=== PATIENT | male | born 1940 | race African-American/Black ===

== ENCOUNTER 2017-03-31 05:42 | Inpatient (IN) | payer OTHER ==
[~2017-03-31] VITALS: Ht 167.6 cm; Wt 79.4 kg
[2017-03-31] VITALS (19 sets, daily range): BP systolic 89–151; BP diastolic 48–86
[2017-03-31] MEDS ORDERED: Vancomycin 1gm/D5W 275ml IVPB ONE ×2 (06:00)
[2017-03-31] MEDS ORDERED: Pantoprazole Inj IVP ONE (06:00)
[2017-03-31] MEDS ORDERED: Thrombin 5000 units TOPIC ONE (07:08)
[2017-03-31] MEDS ORDERED: Vancomycin 1gm inj IVPB ONE (07:09)
[2017-03-31] MEDS ORDERED: Bacitracin Oint 15gm Tube TOPIC ONE (07:09)
[2017-03-31] MEDS ORDERED: Bupivacaine w/Epi 0.5% 30ml Vial INJ ONE (07:10)
[2017-03-31] MEDS ORDERED: Gelfoam Absorbable 1gm powder pkt TOPIC ONE (07:10)
[2017-03-31] MEDS ORDERED: Thrombin 5000 units spray kit TOPIC ONE (07:10)
[2017-03-31] MEDS ORDERED: Bacitracin 50000 Units Vial ONE ×2 (07:10→13:11)
[2017-03-31] MEDS ORDERED: NS Irrig 1000ml ONE (07:30)
[2017-03-31] MEDS ORDERED: Zemuron 50mg/5ml Inj IV ONE (07:30)
[2017-03-31] MEDS ORDERED: Midazolam 2mg/2ml Inj ONE (07:30)
[2017-03-31] MEDS ORDERED: Morphine Sulfate 10mg/ml Inj ONE (07:30)
[2017-03-31] MEDS ORDERED: Meperidine 25mg/0.5ml Inj (FOR RIGORS ONLY) ONE (07:30)
[2017-03-31] MEDS ORDERED: Propofol 200mg/20ml IV ONE (07:30)
[2017-03-31] MEDS ORDERED: Sterile Water Irrig 1000ml IRRIG ONE (07:30)
[2017-03-31] MEDS ORDERED: fentaNYL 100 mcg/2 mL IV ONE (07:30)
[2017-03-31] MEDS ORDERED: Glycopyrrolate 0.2mg/ml 1ml Vial ONE (07:30)
[2017-03-31] MEDS ORDERED: COSOPT1 DRO2 BOTH EYES (07:31)
[2017-03-31] MEDS ORDERED: AMIODARONE HCL200 MG ORAL (07:31)
[2017-03-31] MEDS ORDERED: IBUPROFEN800 M1 PO (07:31)
[2017-03-31] MEDS ORDERED: OMEPRAZOLE MAGN20 MG PO (07:31)
[2017-03-31] MEDS ORDERED: TAMSULOSIN HCL0.4 MG ORAL (07:31)
[2017-03-31] MEDS ORDERED: FINASTERIDE5 MG ORAL (07:31)
[2017-03-31] MEDS ORDERED: PRAVASTATIN SOD40 M1 ORAL (07:31)
[2017-03-31] MEDS ORDERED: METOPROLOL SUCC50 MG ORAL (07:31)
[2017-03-31] MEDS ORDERED: DILTIAZEM ER180 MG PO (07:31)
[2017-03-31] MEDS ORDERED: LATANOPROST2.5 ML BOTH EYES (07:31)
--- NOTE | 2017-03-31 07:52 | Pre-Procedure Note/Attestation ---
Pre-Procedure Note/Attestation Complete Prior to Procedure Planned Procedure: bilateral Procedure Narrative: Posterior lumbar decompressive surgery L3-4 and L4-5 decompression and interspinous fusion with interspinous device at L4-5 and posterolateral arthrodesis, iliac crest bone marrow aspiration, use of allograft, autograft. Attestation I attest that I discussed the nature of the procedure; its benefits; risks and complications; and alternatives (and the risks and benefits of such alternatives ), prior to the procedure, with the patient (or the patient's legal leasing representative). I attest that, if there was a reasonable possibility of needing a blood transfusion, the patient (or the patient's legal leasing representative) was given the [place] [facility] [employer] [facility] standardized written summary, pursuant to the Harpreet Marguerite Blood Safety Act ([place] Health and Safety Code # 1645, as amended). I attest that I re-evaluated the patient just prior to the surgery and that there has been no change in the patient's H&P, except as documented below: PAIGE GARSIA Mar 31, 2017 07:52
[2017-03-31] MEDS ORDERED: LR 1000ml 1,000 ML IVLG SCH (08:43)
[2017-03-31] MEDS ORDERED: Morphine Sulfate 2mg/ml Inj IVP PRN (08:45)
[2017-03-31] MEDS ORDERED: DiphenhydrAMINE 50mg/ml Inj IVP PRN (08:45)
[2017-03-31] MEDS ORDERED: Meperidine 25mg/0.5ml Inj (FOR RIGORS ONLY) SUBQ PRN (08:45)
[2017-03-31] MEDS ORDERED: Ketorolac 30mg Inj IV PRN (08:45)
[2017-03-31] MEDS ORDERED: fentaNYL 100 mcg/2 mL IV PRN (08:45)
--- NOTE | 2017-03-31 08:49 | Anethesia Preoperative Eval ---
Anesthesia Pre-op PMH/ROS General Date of Evaluation: Mar 31, 2017 Time of Evaluation: 07:30 Anesthesiologist: PANFILO ASA Score: ASA 3 Mallampati Score Class I : Soft palate, uvula, fauces, pillars visible Class II: Soft palate, uvula, fauces visible Class III: Soft palate, base of uvula visible Class IV: Only hard plate visible Mallampati Classification: Class II Surgeon: ADY Diagnosis: LUMBAR RADICUOPATHY Surgical Procedure: L4-5 DECOMPRESSION Anesthesia History: none Family History: no anesthesia problems Allergies: Coded Allergies: No Known Allergies (Unverified , 03/31/17) Medications: see eMAR Past Medical History Cardiovascular: Reports: arrhythmia Pulmonary: Reports: GLORIA Gastrointestinal/Genitourinary: Reports: GERD Endocrine: Reports: DM Anesthesia Pre-op Phys. Exam Physician Exam Last Vital Signs Date Time Temp Pulse Resp B/P (MAP) Pulse Ox O2 Delivery O2 Flow Rate FiO2 03/31/17 06:58 97.8 53 18 151/86 97 Room Air Constitutional: NAD Neurologic: CN 2-12 intact Cardiovascular: RRR Respiratory: CTA Airway Exam Mallampati Score: Class II MO: full ROM: full Teeth: intact Anesthesia Pre-op A/P Labs WNL Studies Pre-op Studies: EKG Risk Assessment & Plan Plan: GENERAL ANESTHESIA Status Change Before Surgery: No Pre-Antibiotics Given Within 1 Hr of Incision: Yes Sidney Cruz M.D. Mar 31, 2017 08:49
--- NOTE | 2017-03-31 08:51 | 48 Hour Post Anesthesia Eval ---
Post Anesthesia Evaluation Procedure: LUMBAR DECOMPRESSION Date of Evaluation: Mar 31, 2017 Time of Evaluation: 08:00 Blood Pressure Systolic: 99 Pulse Rate: 61 Respiratory Rate: 16 Temperature (Fahrenheit): 98 O2 Sat by Pulse Oximetry: 99 Airway: patent Nausea: No Vomiting: No Hydration Status: adequate Mental Status/LOC: patient returned to baseline Post-Anesthesia Complications: NONE Follow-up care needed: patient intructions given Sidney Cruz M.D. Mar 31, 2017 08:51
--- NOTE | 2017-03-31 08:53 | Immediate Post-Op Evaluation ---
Immediate Post-Op Evalulation Immediate Post-Op Evalulation Procedure: LUMBAR DECOMPRESSION Date of Evaluation: Mar 31, 2017 Time of Evaluation: 12:00 IV Fluids: 1000 Blood Products: 0 Estimated Blood Loss: 30 Urinary Output: 200 Blood Pressure Systolic: 99 Blood Pressure Diastolic: 61 Pulse Rate: 60 Respiratory Rate: 16 O2 Sat by Pulse Oximetry: 99 Temperature (Fahrenheit): 98.7 Pain Score (1-10): 0 Nausea: No Vomiting: No Patient Status: awake, reacts, patent, extubated Hydration Status: adequate Given Within 1 Hr of Incision: Yes Time Given: 08:00 Sidney Cruz M.D. Mar 31, 2017 08:53
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
[2017-03-31] MEDS ORDERED: Acetaminophen (Non formulary) 100 ML IV ONE (11:45)
--- NOTE | 2017-03-31 11:46 | Diagnostic Imaging Report ---
Indication: Back pain Comparison: None Findings: Fluoroscopic views of the lumbar spine were obtained. Localization image showing posterior to L4 followed by placement of a prosthetic metallic implant between the spinous processes of L4 and L5 demonstrate. Impression: Intraoperative imaging
[2017-03-31] MEDS ORDERED: HYDROmorphone 1mg/ml Carpuject IVP PRN (12:00)
[2017-03-31] MEDS ORDERED: Milk of Magnesia 30ml Ud ORAL PRN (12:00)
[2017-03-31] MEDS ORDERED: Norco 7.5mg/325mg tab ORAL PRN ×2 (12:00)
--- NOTE | 2017-03-31 12:06 | General Progress Note ---
Progress Note Progress Note Neurosurgery Post-op s/ arousable O/ vs Last 24 Hour Vital Signs Date Time Temp Pulse Resp B/P (MAP) Pulse Ox O2 Delivery O2 Flow Rate FiO2 03/31/17 11:59 98.9 03/31/17 11:55 56 16 102/57 99 Simple Mask 6.0 03/31/17 11:45 52 33 89/60 99 Simple Mask 6.0 03/31/17 11:40 51 15 98/52 99 Simple Mask 6.0 03/31/17 11:35 98.9 53 23 97/48 99 Simple Mask 6.0 03/31/17 08:53 60 16 99 03/31/17 08:51 61 16 99 03/31/17 06:58 97.8 53 18 151/86 97 Room Air arousable Moves extremities to stimulation dressing dry FSBG 128 stable admit PAIGE GARSIA Mar 31, 2017 12:06
[2017-03-31] MEDS ORDERED: Naloxone 0.4mg/ml Inj IVP ONE (12:55)
--- NOTE | 2017-03-31 13:39 | General Progress Note ---
Assessment/Plan Status Narrative s/p spine fusion hypertension bph post op sedation will monitor inthe pacu till more alert and transfer to the floor and monitor closley pt opt dvt priophyalxis Subjective Date patient seen: Mar 31, 2017 Constitutional: Reports: no symptoms - patient moderately lethargicv postop giverenice rockwell mouch improved , chills - chestpain, diaphoresis - nop o sob Allergies: Coded Allergies: No Known Allergies (Unverified , 03/31/17) Objective Last 24 Hour Vital Signs Date Time Temp Pulse Resp B/P (MAP) Pulse Ox O2 Delivery O2 Flow Rate FiO2 03/31/17 12:50 52 16 112/69 99 Simple Mask 6.0 03/31/17 12:35 51 16 111/59 99 Simple Mask 6.0 03/31/17 12:25 52 16 113/63 99 Simple Mask 6.0 03/31/17 12:15 53 19 116/64 99 Simple Mask 6.0 03/31/17 12:05 54 25 110/62 99 Simple Mask 6.0 03/31/17 11:59 98.9 03/31/17 11:55 56 16 102/57 99 Simple Mask 6.0 03/31/17 11:45 52 33 89/60 99 Simple Mask 6.0 03/31/17 11:40 51 15 98/52 99 Simple Mask 6.0 03/31/17 11:35 98.9 53 23 97/48 99 Simple Mask 6.0 03/31/17 08:53 60 16 99 03/31/17 08:51 61 16 99 03/31/17 06:58 97.8 53 18 151/86 97 Room Air Intake and Output 03/31/17 04/01/17 19:00 07:00 Intake Total 1000 ml Output Total 230 ml Balance 770 ml Intake IV Total 1000 ml Output Urine Total 200 ml Estimated Blood Loss 30 ml Height (Feet): 5 Height (Inches): 6.00 Weight (Pounds): 175 General Appearance: WD/WN Neck: non-tender Cardiovascular: normal rate, no JVD Respiratory/Chest: lungs clear Abdomen: non tender, soft Extremities: other - moves all extremity THOMAS RAYO Mar 31, 2017 13:39
[2017-03-31] MEDS ORDERED: D5 1/2NS 1,000 ML IV SCH (15:30)
[2017-03-31 16:44] LABS: ANION GAP 12 (5-15); CALCIUM 8.3 mg/dL (8.6-10.2); CARBON DIOXIDE 23 mEQ/L (20-30); CHLORIDE 102 mEQ/L (98-107); CREATININE 0.8 mg/dL (0.7-1.2); HEMOLYSIS 5; POTASSIUM 4.2 mEQ/L (3.4-4.9); SODIUM 137 mEQ/L (135-145)
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
[2017-03-31] MEDS: Vancomycin 1 GM in D5W 275 ML IVPB SCH (17:35)
[2017-03-31] MEDS: Docusate 100mg cap ORAL SCH (17:36)
[2017-03-31] MEDS: Pericolace tab ORAL SCH (17:36)
[2017-03-31] MEDS ORDERED: Latanoprost 0.005% Opth 2.5ml Soln BOTH EYES SCH (21:00)
[2017-03-31] MEDS ORDERED: Amiodarone 200mg tab ORAL SCH (21:00)
[2017-03-31] MEDS: Cosopt Opth Soln 10 mL Btl BOTH EYES SCH (21:23)
[2017-04-01 00:41] VITALS: BP 151/86
[2017-04-01 04:39] VITALS: BP 151/82
[2017-04-01] MEDS: Vancomycin 1 GM in D5W 275 ML IVPB SCH (05:53)
[2017-04-01 08:20] LABS: MEAN CORPUSCULAR HEMOGLOBIN 32.2 PG (27.0-31.0); MEAN CORPUSCULAR HGB CONC 33.6 G/DL (32.0-36.0); MEAN CORPUSCULAR VOLUME 96 FL (80-99); PLATELET COUNT 122 K/UL (150-450); RED BLOOD COUNT 4.26 M/UL (4.70-6.10); RED CELL DISTRIBUTION WIDTH 11.8 % (11.6-14.8); WHITE BLOOD COUNT 10.7 K/UL (4.8-10.8)
[2017-04-01] MEDS: Docusate 100mg cap ORAL SCH (08:27)
[2017-04-01] MEDS: Pericolace tab ORAL SCH (08:27)
[2017-04-01] MEDS: Cosopt Opth Soln 10 mL Btl BOTH EYES SCH (08:29)
[2017-04-01 08:33] LABS: ANION GAP 10 (5-15); CALCIUM 8.9 mg/dL (8.6-10.2); CARBON DIOXIDE 27 mEQ/L (20-30); CHLORIDE 101 mEQ/L (98-107); CREATININE 0.8 mg/dL (0.7-1.2); HEMOLYSIS 2; MAGNESIUM 2.2 mg/dL (1.7-2.5); POTASSIUM 4.3 mEQ/L (3.4-4.9); SODIUM 138 mEQ/L (135-145)
[2017-04-01 08:38] VITALS: BP 167/95
[2017-04-01 08:59] LABS: BAND NEUTROPHILS % (MANUAL) 0 % (0-8); BASOPHILS % (MANUAL) 0 % (0-2); EOSINOPHILS % (MANUAL) 0 % (0-3); LYMPHOCYTES % (MANUAL) 7 % (20-45); NEUTROPHILS % (MANUAL) 91 % (45-75); PLATELET ESTIMATE DECREASED; PLATELET MORPHOLOGY NORMAL; TOTAL CELLS COUNTED 100
[2017-04-01] MEDS ORDERED: Metoprolol Succinate XL 50mg tab ORAL SCH ×2 (09:00)
[2017-04-01] MEDS ORDERED: dilTIAZem HCl CD 180mg cap ORAL SCH ×2 (09:00)
[2017-04-01 11:51] VITALS: BP 125/74
--- NOTE | 2017-04-01 12:58 | General Progress Note ---
Progress Note Progress Note Neurosurgery POD#1 S/ Doing well Kim D/c. Voided. Ambulated with PT. Leg pain much better. O/ VS Last 24 Hour Vital Signs Date Time Temp Pulse Resp B/P (MAP) Pulse Ox O2 Delivery O2 Flow Rate FiO2 04/01/17 11:51 97.7 54 20 125/74 100 Nasal Cannula 3.0 04/01/17 08:38 97.9 53 20 167/95 100 Nasal Cannula 3.0 04/01/17 08:27 53 151/82 04/01/17 08:26 53 151/82 04/01/17 08:00 55 04/01/17 04:39 97.3 53 20 151/82 99 Nasal Cannula 04/01/17 04:00 51 04/01/17 00:41 97.2 52 22 151/86 98 Nasal Cannula 04/01/17 00:00 51 03/31/17 20:38 97.9 16 134/74 100 Nasal Cannula 3.0 03/31/17 20:00 55 03/31/17 17:30 96.8 52 18 125/75 99 Nasal Cannula 3.0 03/31/17 16:00 53 03/31/17 15:09 96.9 93 18 115/63 97 Nasal Cannula 3.0 03/31/17 14:42 93 03/31/17 14:15 98.0 91 16 110/64 96 Nasal Cannula 3.0 03/31/17 14:00 91 16 112/60 96 Nasal Cannula 3.0 03/31/17 13:45 90 16 114/64 99 Nasal Cannula 3.0 03/31/17 13:33 98.0 03/31/17 13:30 56 16 115/63 99 Nasal Cannula 3.0 03/31/17 13:15 56 16 126/65 99 Nasal Cannula 3.0 03/31/17 13:03 60 16 123/71 99 Simple Mask 6.0 03/31/17 12:58 98.0 03/31/17 12:50 52 16 112/69 99 Simple Mask 6.0 Exam Alert and oriented x 4. smiling pleasant and interactive daughters at the bedsid motor 5/5 sensation normal. Incision dressing C/D/I Labs Laboratory Tests Test 03/31/17 16:00 04/01/17 07:30 Sodium Level 137 mEQ/L (135-145) 138 mEQ/L (135-145) Potassium Level 4.2 mEQ/L (3.4-4.9) 4.3 mEQ/L (3.4-4.9) Chloride Level 102 mEQ/L (98-107) 101 mEQ/L (98-107) Carbon Dioxide Level 23 mEQ/L (20-30) 27 mEQ/L (20-30) Anion Gap 12 (5-15) 10 (5-15) Blood Urea Nitrogen 15 mg/dL (7-23) 13 mg/dL (7-23) Creatinine 0.8 mg/dL (0.7-1.2) 0.8 mg/dL (0.7-1.2) Estimat Glomerular Filtration Rate mL/min (>60) mL/min (>60) Glucose Level 166 mg/dL (74-106) H 170 mg/dL (74-106) H Calcium Level 8.3 mg/dL (8.6-10.2) L 8.9 mg/dL (8.6-10.2) White Blood Count 10.7 K/UL (4.8-10.8) Red Blood Count 4.26 M/UL (4.70-6.10) L Hemoglobin 13.7 G/DL (14.2-18.0) L Hematocrit 40.8 % (42.0-52.0) L Mean Corpuscular Volume 96 FL (80-99) Mean Corpuscular Hemoglobin 32.2 PG (27.0-31.0) H Mean Corpuscular Hemoglobin Concent 33.6 G/DL (32.0-36.0) Red Cell Distribution Width 11.8 % (11.6-14.8) Platelet Count 122 K/UL (150-450) L Mean Platelet Volume 13.0 FL (6.5-10.1) H Neutrophils (%) (Auto) % (45.0-75.0) Lymphocytes (%) (Auto) % (20.0-45.0) Monocytes (%) (Auto) % (1.0-10.0) Eosinophils (%) (Auto) % (0.0-3.0) Basophils (%) (Auto) % (0.0-2.0) Differential Total Cells Counted 100 Neutrophils % (Manual) 91 % (45-75) H Lymphocytes % (Manual) 7 % (20-45) L Monocytes % (Manual) 2 % (1-10) Eosinophils % (Manual) 0 % (0-3) Basophils % (Manual) 0 % (0-2) Band Neutrophils 0 % (0-8) Platelet Estimate Decreased L Platelet Morphology Normal Red Blood Cell Morphology Normal Magnesium Level 2.2 mg/dL (1.7-2.5) doing well d/c plannig lumbar brace PAIGE GARSIA Apr 01, 2017 12:58
[2017-04-01] MEDS ORDERED: Amiodarone 200mg tab ORAL SCH (21:00)
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
[2017-04-04] MEDS ORDERED: Amiodarone 200mg tab ORAL SCH (21:00)
== END 2017-04-01 15:20 | disposition home or self-care (01) | DRG 460 ==
LOC: SDSOVERFLO 05:42 → 2E 14:32
PROC: 0QB00ZZ Excision of Lumbar Vertebra, Open Approach (ICD-10-PCS; 2017-03-31)
PROC: 01NB0ZZ Release Lumbar Nerve, Open Approach (ICD-10-PCS; principal; 2017-03-31 07:30)
PROC: 00NY0ZZ Release Lumbar Spinal Cord, Open Approach (ICD-10-PCS; principal; 2017-03-31 07:30)
PROC: 0SG00AJ Fusion of Lumbar Vertebral Joint with Interbody Fusion Device, Posterior Approach, Anterior Column, Open Approach (ICD-10-PCS; principal; 2017-03-31 07:30)
PROC: 07DR3ZZ Extraction of Iliac Bone Marrow, Percutaneous Approach (ICD-10-PCS; principal; 2017-03-31 07:30)
DX: M48.061 Spinal stenosis, lumbar region without neurogenic claudication (principal); I48.0 Paroxysmal atrial fibrillation; E11.9 Type 2 diabetes mellitus without complications; I10 Essential (primary) hypertension; M54.16 Radiculopathy, lumbar region; N40.0 Benign prostatic hyperplasia without lower urinary tract symptoms; R26.2 Difficulty in walking, not elsewhere classified; V89.2XXS Person injured in unspecified motor-vehicle accident, traffic, sequela; M71.38 Other bursal cyst, other site
CPT/HCPCS: 36415; 72020; 76001; 80048; 82962; 83735; 85007; 85025; 86850; 86900; 86901; 87081; 94003; 94150; C9399; J0282; J2180; J2250